=== PATIENT | female | born 1950 | race Caucasian/White ===

== ENCOUNTER 2024-10-19 09:32 | Outpatient (CLI) | payer SELFPAY ==
--- NOTE | 2024-10-19 09:37 | CT_ITS ---
WS: [id number] CT CALCIUM SCORE REASON FOR VISIT: CHEST PAIN/HTN; Coronary artery disease risk assessment COMPARISON: None TECHNIQUE: Noncontrast coronary CT in combination with quantitative analysis performed on a separate workstation were used to determine CACS (Agatston score) TOTAL EXAM DOSE: 34.36 mGy.cm ECG GATING: Prospective SCAN RANGE: Pulmonary artery bifurcation to Inferior aspect of heart COMPLICATIONS: None FINDINGS: Technical Quality/Examination Quality: Good Limitaiton: None OVERALL SCORES Total calcium score: 0 ARTERY SCORES Left main coronary artery: 0 Left anterior descending artery: 0 Left circumflex artery: 0 Right coronary artery: 0 OTHER FINDINGS: Mediastinum: Normal. Thoracic aorta: Normal. Lungs: Normal. Upper Abdomen: Normal. MINIMAL: 1-10 MILD: 11-100 MODERATE: 101-400 SEVERE:>400 CT/CT heart w calcium score 39190 IMPRESSION: No evidence of coronary artery disease. Calcium score 0. GRADING OF CORONARY ARTERY DISEASE (BASED ON TOTAL CALCIUM SCORE) NO EVIDENCE OF CAD: 0 calcium score
== END 2024-10-19 09:33 | disposition home or self-care (01) ==
PROVIDERS: PCP Family Medicine; Visit Provider Family Medicine
DX: R07.9 Chest pain, unspecified (principal); I10 Essential (primary) hypertension
CPT/HCPCS: 75571